=== PATIENT | female | born 1980 | race Caucasian/White ===

== ENCOUNTER 2017-08-11 18:05 | Emergency (ER) | payer OTHER ==
[~2017-08-11] VITALS: Ht 165.1 cm; Wt 92.4 kg
[~2017-08-11 18:05] MED LIST: ACYCLOVIR800 MG PO; AMLODIPINE5 MG PO; AMOXICILLIN/CL875 MG PO; AMOXICILLIN500 MG PO; ANUCORT-HC25 MG RE; ATENOLOL100 MG PO; ATENOLOL50 MG PO; AUGMENTIN875TAB PO; BENZONATATE200 MG PO; CLONIDINE0.1 MG PO; COLACE50 MG OR; CONCEPT OB PO; CONTRAVE 8-90 M1 TAB PO; FERROUS SULF325 M1 PO; FLONASE NASAL50 MCG; FLUZONE SPLT1 M1 IM; GNP ALLERGY-D12 HOUR PO; LABETALOL100 MG PO; LABETALOL300 MG PO; LASIX20 MG PO; LISINOP/HCTZ1 TAB PO; LORTAB5 PO; MEDDOSEPAK PO; METOPROL TAR25 MG PO; NORVASC10 M1 PO; NUVO RING; PERCOCET 10/31 COMBO PO; PERCOCET1 TA4 PO; PROAIR HFA IN; PROCARDIA XL90 MG PO; ULTRAM50 M1 PO; VENTOLIN HFA IN; ZOFRAN ODT4 MG PO; ZPAK PO
[2017-08-11 19:06] LABS: HEMATOCRIT 40.4 % (37.0-47.0); HEMOGLOBIN 13.9 g/dl (12.0-16.0); IMMATURE GRANULOCYTES 0.3 % (0.0-1.0); MEAN CELL VOLUME 85.1 fL CALC (80.0-100.0); MEAN CORPUSCULAR HGB 29.3 pG CALC (26.0-32.0); MEAN CORPUSCULAR HGB CONC 34.4 g/L CALC (32.0-36.0); NEUT# 8.19 thou/uL (2.00-7.15); RED BLOOD COUNT 4.75 mill/uL (4.20-5.60)
[2017-08-11 19:12] LABS: ALBUMIN 4.7 g/dL (3.2-5.0); ALKALINE PHOSPHATASE 118 u/l (38-126); ANION GAP 18 (6-22 (CALC)); BILIRUBIN, TOTAL 0.5 mg/dL (0.0-1.4); BUN 8 mg/dL (7-17); BUN/CREATININE RATIO 13 (12-20 (CALC)); CARBON DIOXIDE 23 mmol/l (22-30); CHLORIDE 106 mmol/l (95-108); CREATININE 0.6 mg/dL (0.5-1.0); GFR > 60 ML/MIN (>=60 (CALC)); GFR FOR AFR.AMER. > 60 ML/MIN (>=60 (CALC)); GLUCOSE 108 mg/dL (65-105); POTASSIUM 3.6 mmol/l (3.5-5.1); SGOT/AST 25 u/l (14-36); SGPT/ALT 26 u/l (9-52); SODIUM 144 mmol/l (137-146); TOTAL PROTEIN 7.7 g/dL (6.3-8.2)
[2017-08-11 20:05] LABS: INFLUENZA A NONE DETECTED (NONE DETECT); INFLUENZA B NONE DETECTED (NONE DETECT)
--- NOTE | 2017-08-11 20:24 | NUR ---
BREATHING TREATMENT GIVEN. BREATHING TEACH FOR GOOD DEPOSITION TO THE LUNGS.
[2017-08-11] MEDS ORDERED: ALBUTEROL SUL0.083 % IN (21:04)
[2017-08-11] MEDS ORDERED: MEDDOSEPAK PO (21:04)
[2017-08-11] MEDS ORDERED: ROBITUSSIN AC10 ML PO (21:04)
[2017-08-11 21:10] VITALS: BP 169/91
== END 2017-08-11 21:10 | disposition home or self-care (01) | DRG 192 ==
LOC: ED 18:05
PROVIDERS: Emergency Medicine
DX: J44.1 Chronic obstructive pulmonary disease with (acute) exacerbation (principal); E11.65 Type 2 diabetes mellitus with hyperglycemia; I10 Essential (primary) hypertension; R06.02 Shortness of breath; E78.4 Other hyperlipidemia; R53.83 Other fatigue; R05 Cough; J06.9 Acute upper respiratory infection, unspecified

== ENCOUNTER 2018-03-21 01:47 | Emergency (ER) | payer OTHER ==
[~2018-03-21] VITALS: Ht 165.1 cm; Wt 94.6 kg
[~2018-03-21 01:47] MED LIST changes: +ALBUTEROL SUL0.083 % IN; +ROBITUSSIN AC10 ML PO
[2018-03-21 02:25] LABS: HEMATOCRIT 40.2 % (37.0-47.0); HEMOGLOBIN 13.8 g/dl (12.0-16.0); IMMATURE GRANULOCYTES 0.3 % (0.0-5.0); MEAN CELL VOLUME 83.9 fL CALC (80.0-100.0); MEAN CORPUSCULAR HGB 28.8 pG CALC (26.0-32.0); MEAN CORPUSCULAR HGB CONC 34.3 g/L CALC (32.0-36.0); NEUT# 5.38 thou/uL (2.00-7.15); RED BLOOD COUNT 4.79 mill/uL (4.20-5.60); RED CELL DISTRI WIDTH 12.8 % (11.5-15.5)
[2018-03-21 02:27] LABS: URINE BILIRUBIN - DIPSTICK NEGATIVE (NEGATIVE); URINE BLOOD DIPSTICK SMALL (NEGATIVE); URINE COLOR YELLOW; URINE GLUCOSE - DIPSTICK NEGATIVE (NEGATIVE); URINE KETONE NEGATIVE (NEGATIVE); URINE LEUK ESTERASE NEGATIVE (NEGATIVE); URINE NITRITE - DIPSTICK NEGATIVE (Negative); URINE PROTEIN - DIPSTICK 30 mg/dL (NEG-TRACE); URINE UROBILINOGEN - DIPSTICK 0.2 E.U./dL (0.2)
[2018-03-21 02:41] LABS: ALBUMIN 4.2 g/dL (3.2-5.0); ALKALINE PHOSPHATASE 129 u/l (38-126); ANION GAP 11 (6-22 (CALC)); BILIRUBIN, TOTAL 0.2 mg/dL (0.0-1.4); BUN 11 mg/dL (7-17); BUN/CREATININE RATIO 21 (12-20 (CALC)); CARBON DIOXIDE 26 mmol/l (22-30); CHLORIDE 106 mmol/l (95-108); CREATININE 0.5 mg/dL (0.5-1.0); GFR > 60 ML/MIN (>=60 (CALC)); GFR FOR AFR.AMER. > 60 ML/MIN (>=60 (CALC)); POTASSIUM 3.2 mmol/l (3.5-5.1); SGOT/AST 18 u/l (14-36); SGPT/ALT 28 u/l (9-52); SODIUM 140 mmol/l (137-146); TOTAL PROTEIN 7.4 g/dL (6.3-8.2)
[2018-03-21 02:45] LABS: URINE CLARITY SL CLOUDY
[2018-03-21 02:48] LABS: URINE WBC 0-2 WBC/hpf (0-5)
[2018-03-21 02:49] LABS: URINE AMORPH SEDIMENT MODERATE hpf (NONE-FEW); URINE BACTERIA MODERATE hpf; URINE EPITHELIAL CELLS FEW EPI/hpf (0-FEW)
[2018-03-21] MEDS ORDERED: LORTAB 5/3255 MG PO (06:44)
[2018-03-21] MEDS ORDERED: TAMSULOSIN0.4 MG PO (06:56)
[2018-03-21 07:15] VITALS: BP 130/79
== END 2018-03-21 07:15 | disposition home or self-care (01) | DRG 694 ==
LOC: ED 01:47
PROVIDERS: Family Medicine
DX: N13.2 Hydronephrosis with renal and ureteral calculous obstruction (principal); R10.12 Left upper quadrant pain; R10.32 Left lower quadrant pain; R11.2 Nausea with vomiting, unspecified; F17.210 Nicotine dependence, cigarettes, uncomplicated

== ENCOUNTER 2022-04-16 08:12 | Day surgery (SDC) | payer BC ==
[~2022-04-16] VITALS: Ht 167.6 cm; Wt 81.6 kg
[~2022-04-16 08:12] MED LIST changes: +ANASTROZOLE1 MG PO; +LORTAB 5/3255 MG PO; +TAMSULOSIN0.4 MG PO
[2022-04-16 10:37] VITALS: BP 144/91
== END 2022-04-16 10:30 | disposition home or self-care (01) | DRG 950 ==
LOC: ORM 08:12
PROVIDERS: ATTEND Surgery
PROC: 0JPT3WZ Removal of Totally Implantable Vascular Access Device from Trunk Subcutaneous Tissue and Fascia, Percutaneous Approach (ICD-10-PCS; principal; 2022-04-16)
PROC: 02PY33Z Removal of Infusion Device from Great Vessel, Percutaneous Approach (ICD-10-PCS; 2022-04-16)
DX: Z45.2 Encounter for adjustment and management of vascular access device (principal); Z85.3 Personal history of malignant neoplasm of breast; Z90.13 Acquired absence of bilateral breasts and nipples; F17.200 Nicotine dependence, unspecified, uncomplicated